=== PATIENT | female | born 1985 | race Caucasian/White ===

== ENCOUNTER 2017-08-25 05:56 | Day surgery (SDC) | payer MEDICAID ==
[2017-08-22 15:19] LABS: ADD MAN DIFF? NO
[2017-08-22 15:24] LABS: ADD UMIC NO; UR ASCORBIC ACID NEGATIVE (NEGATIVE); UR BILIRUBIN (Dip) NEGATIVE (NEGATIVE); UR BLOOD (Dip) NEGATIVE (NEGATIVE); UR CLARITY CLEAR (CLEAR); UR COLOR STRAW (YELLOW); UR GLUCOSE (Dip) NEGATIVE (NEGATIVE); UR KETONES (Dip) NEGATIVE (NEGATIVE); UR LEUKOCYTE ESTERASE (Dip) NEGATIVE Leu/ul (NEGATIVE); UR NITRITE (Dip) NEGATIVE (NEGATIVE); UR TOTAL PROTEIN (Dip) NEGATIVE (NEGATIVE); UR UROBILINOGEN (Dip) NEGATIVE (NEGATIVE)
[2017-08-22 15:27] LABS: WHITE BLOOD COUNT 9.1 10^3/ul (4.8-10.8)
[2017-08-22 15:27] LABS: BASOPHIL # 0.1 10^3/ul (0.0-0.1); BASOPHILS % 0.6 % (0.0-2.0); EOSINOPHILS # 0.3 10^3/ul (0.0-0.5); EOSINOPHILS % 3.2 % (0.0-7.0); LYMPHOCYTES % 33.1 % (15.0-51.0); MEAN CORPUSCULAR HGB CONC 35.1 g/dl (32.0-37.0); MEAN CORPUSCULAR VOLUME 91.1 fl (82.0-101.0); MEAN PLATELET VOLUME 9.9 fl (7.4-10.4); MONOCYTE # 0.6 10^3/ul (0.3-0.9); MONOCYTES % 6.5 % (0.0-11.0); NEUTROPHIL # 5.1 10^3/ul (1.6-7.5); NEUTROPHILS % 56.2 % (39.0-77.0); PLATELET COUNT 330 10^3/UL (140-415); RED BLOOD COUNT 4.06 10^6/ul (4.20-5.40); RED CELL DISTRIBUTION WIDTH 12.5 % (11.5-14.5)
[2017-08-22 15:44] LABS: INR 0.93; PROTIME 12.6 Sec (11.9-14.9)
[2017-08-22 15:45] LABS: PARTIAL THROMBOPLASTIN TIME 27.5 Sec (25.0-35.0)
[2017-08-22 15:51] LABS: ALANINE AMINOTRANSFERASE 51 IU/L (13-69); ALBUMIN 4.5 g/dl (3.3-4.9); ALBUMIN/GLOBULIN RATIO 1.09; ALKALINE PHOSPHATASE 128 IU/L (42-121); ANION GAP 19 (8-16); ASPARTATE AMINO TRANSFERASE 30 IU/L (15-46); BILIRUBIN,INDIRECT 0.1 mg/dl (0-1.1); BILIRUBIN,TOTAL 0.1 mg/dl (0.2-1.3); CARBON DIOXIDE 27 mmol/L (21-31); CHLORIDE 102 mmol/L (97-110); GLUCOSE 130 mg/dl (70-220); TOTAL PROTEIN 8.6 g/dl (6.1-8.1)
[2017-08-22 15:55] LABS: BLOOD UREA NITROGEN 12 mg/dl (7-20); CALCIUM 9.5 mg/dl (8.4-10.2); CREATININE 0.54 mg/dl (0.44-1.00); SODIUM 144 mmol/L (135-144)
[2017-08-25] MEDS ORDERED: LACTATED RINGER'S 500 ML IV (06:00)
[2017-08-25] MEDS ORDERED: NEOSTIGMINE 3 MG/3 ML SYRINGE (08:05)
[2017-08-25] MEDS ORDERED: GLYCOPYRROLATE 0.4 MG INJ (08:05)
[2017-08-25] MEDS ORDERED: ROCURONIUM 50 MG INJ (08:05)
[2017-08-25] MEDS ORDERED: CEFAZOLIN 1 GM INJ (08:05)
[2017-08-25] MEDS ORDERED: PROPOFOL 20 ML (08:05)
[2017-08-25] MEDS ORDERED: FENTAnyl 50 MCG/ML VIAL ×2 (08:06→08:38)
[2017-08-25] MEDS ORDERED: ONDANSETRON 4 MG INJ (08:06)
[2017-08-25] MEDS ORDERED: DEXAMETHASONE 4 MG/ML 1 ML INJ (08:06)
[2017-08-25] MEDS ORDERED: MIDAZOLAM 1 MG/ML 2 ML INJ (08:06)
[2017-08-25] MEDS ORDERED: SUGAMMADEX SODIUM 200 MG/2 ML VIAL IV (08:50)
[2017-08-25] MEDS ORDERED: FENTAnyl 50 MCG/ML VIAL IV ×3 (09:00)
[2017-08-25] MEDS ORDERED: ALBUTEROL 0.083% (NEB) 2.5 MG/3 ML AMP HHN (09:00)
[2017-08-25] MEDS ORDERED: OXYCODONE/ACETAMINOPHEN (5/325) TAB PO ×4 (09:00→09:30)
[2017-08-25] MEDS ORDERED: hydrALAzine 20 MG INJ IV (09:00)
[2017-08-25] MEDS ORDERED: DIPHENHYDRAMINE 50 MG INJ IV (09:00)
[2017-08-25] MEDS ORDERED: HYDROmorphONE (0.2 MG/ML) 10ML SYG IV ×3 (09:00)
[2017-08-25] MEDS ORDERED: EPHEDrine SULFATE 50 MG/5 ML SYG IV (09:00)
[2017-08-25] MEDS ORDERED: LABETALOL HCL 20MG INJ IV (09:00)
[2017-08-25] MEDS ORDERED: IPRATROPIUM (NEB) 0.5 MG/2.5 ML AMP HHN (09:00)
[2017-08-25] MEDS ORDERED: MIDAZOLAM 1 MG/ML 2 ML INJ IV (09:00)
[2017-08-25] MEDS ORDERED: TRIMETHOBENZAMIDE 100 MG/ML VIAL IM (09:00)
[2017-08-25] MEDS ORDERED: LACTATED RINGER'S 1,000 ML IV (09:05)
[2017-08-25] MEDS: BUPIVACAINE 0.5%/EPI (SDV) 30 ML INJ (09:14)
[2017-08-25] MEDS: MEPERIDINE 25 MG INJ IV (09:30)
[2017-08-25] MEDS ORDERED: ONDANSETRON 4 MG INJ IV (09:30)
[2017-08-25] MEDS ORDERED: morphine 2 MG INJ IV (09:30)
[2017-08-25] MEDS: ONDANSETRON 4 MG INJ IV (09:30)
[2017-08-25] MEDS ORDERED: ACETAMINOPHEN 325 MG TAB PO (09:30)
[2017-08-25] MEDS ORDERED: IBUPROFEN 600 MG TAB PO (09:30)
== END 2017-08-25 10:25 | disposition home or self-care (01) ==
LOC: SDS 05:56
DX: Z30.2 Encounter for sterilization (principal)
CPT/HCPCS: 58670; 80053; 81003; 85025; 85610; 85730; 86850; 86900; 86901